=== PATIENT | male | born 1985 | race Two or more races ===

== ENCOUNTER 2023-11-18 01:14 | Emergency (ER) | payer OTHER ==
[~2023-11-18] VITALS: Ht 182.9 cm; Wt 95.3 kg
[2023-11-18] MEDS ORDERED: DULOXETINE HCL40 MG (01:17)
[2023-11-18] MEDS ORDERED: METHYLPREDNISOLONE SOD SUCC 125 MG VIAL IV STA (01:25)
[2023-11-18] MEDS ORDERED: DIPHENHYDRAMINE HCL 50 MG/ML VIAL 1ML IV STA (01:25)
[2023-11-18] MEDS ORDERED: FAMOTIDINE/PF 20 MG/2 ML VIAL IV PUSH STA (01:26)
[2023-11-18] MEDS ORDERED: EPINEPHRINE HCL/PF 1 MG/ML AMPUL SUBCUTANEO STA (01:26)
[2023-11-18] MEDS ORDERED: EPINEPHRINE HCL/PF 1 MG/ML AMPUL ONE (01:29)
[2023-11-18] MEDS ORDERED: DIPHENHYDRAMINE HCL 50 MG/ML VIAL 1ML ONE (01:29)
[2023-11-18] MEDS ORDERED: METHYLPREDNISOLONE SOD SUCC 125 MG VIAL ONE (01:30)
[2023-11-18] MEDS ORDERED: FAMOTIDINE/PF 20 MG/2 ML VIAL ONE (01:30)
[2023-11-18] MEDS ORDERED: ALLEGRA ALLERG180 MG PO (03:06)
[2023-11-18] MEDS ORDERED: MEDROL8 MG PO (03:06)
== END 2023-11-18 03:23 ==
LOC: ER 01:15
DX: T78.49XA Other allergy, initial encounter (principal)